=== PATIENT | male | born 1940 | race Caucasian/White ===

== ENCOUNTER 2018-12-29 02:16 | Outpatient (CLI) | payer MEDICARE ==
[~2018-12-29 02:16] MED LIST: AMLO-307 PO; ASPI-612 PO; ATOR20TA66 PO; DABI150C PO; DRON400T6 PO; LEVO75TA PO; METO-395 PO; NITR0.4T51 SL
== END 2018-12-29 23:59 | disposition home or self-care (01) ==
LOC: DIABETIC 02:16
PROVIDERS: ATTEND Internal Medicine Interventional Cardiology
DX: E11.9 Type 2 diabetes mellitus without complications (principal); I25.10 Atherosclerotic heart disease of native coronary artery without angina pectoris; E78.5 Hyperlipidemia, unspecified; I10 Essential (primary) hypertension
CPT/HCPCS: G0108